=== PATIENT | female | born 1990 | race Caucasian/White ===

== ENCOUNTER 2016-07-08 13:56 | Outpatient (CLI) ==
[2015-11-28 08:48] VITALS: BMI 21.4
[2016-07-08 14:37] LABS: SERUM PREGNANCY INTERNAL QC INTERNAL QC VALID
--- NOTE | 2016-07-08 16:15 | DI ---
EXAM: RIGHT RIBS HISTORY: Rib pain after fall FINDINGS: Right ribs four view. No displaced rib fracture is identified. No bony destruction, pneu mothorax or soft tissue finding. IMPRESSION: No displaced rib fracture seen.
== END 2016-07-08 13:57 | disposition home or self-care (01) ==
LOC: RAD 13:56
PROVIDERS: ATTEND Nurse Practitioner Family
DX: R07.81 Pleurodynia (principal); M79.1 Myalgia; M54.5 Low back pain; W19.XXXA Unspecified fall, initial encounter; Y63.3 Inadvertent exposure of patient to radiation during medical care
CPT/HCPCS: 36415; 84703

== ENCOUNTER 2016-09-06 13:01 | Outpatient (CLI) ==
[2015-11-28 08:48] VITALS: BMI 21.4
--- NOTE | 2016-09-08 17:51 | MRI ---
EXAM: Brain MRI without contrast. HISTORY: Migraine. COMPARISON: Head CT 11/28/2015. TECHNIQUE: Multiplanar, multisequence MR images were acquired of the brain without contrast. FINDINGS: The midline structures are central and the craniocervical junction is unremarkable. The ventricles and sulci are normal in size and configuration. There are no abnormal extra-axial fluid collections. The brain parenchyma has no diffusion restriction to suggest acute hypoperfusion or infarction. The re are no abnormal T2 hyperintensities or foci of dark gradient echo signal. The corpus callosum brown s a normal configuration. The pituitary gland is slightly heterogeneous and has a convex superior b order. The gland is normal in size and measures 7.4 mm in height. There are no intraorbital masses. Mild rightward nasal septal deviation is present. Paranasal sinu ses, middle ears and mastoids are unremarkable. Mild adenoidal hypertrophy is present which is cons idered normal for the patient's age. Flow voids are present in the major intracranial arteries and dural venous sinuses. IMPRESSION: 1. No intracranial hemorrhage or acute infarct. 2. Slightly heterogeneous pituitary gland which has a convex superior border and is normal in size. If significant endocrine symptoms are present, a dedicated pituitary MRI may be considered.
== END 2016-09-06 13:02 | disposition home or self-care (01) ==
LOC: RAD 13:01
PROVIDERS: ATTEND Nurse Practitioner Family
DX: G43.909 Migraine, unspecified, not intractable, without status migrainosus (principal)

== ENCOUNTER 2018-05-27 16:19 | Outpatient (CLI) ==
[2015-11-28 08:48] VITALS: BMI 21.4
== END 2018-05-27 16:20 | disposition home or self-care (01) ==
LOC: RHC-LAB 16:19
PROVIDERS: ATTEND Nurse Practitioner Family
DX: J02.9 Acute pharyngitis, unspecified (principal); R50.9 Fever, unspecified
CPT/HCPCS: 87502; 87651